=== PATIENT | male | born 1960 | race Two or more races ===

== ENCOUNTER 2024-08-05 07:56 | Day surgery (SDC) | payer BC, MEDICARE ==
[2024-07-30 09:33] LABS: Urine Bacteria None Seen /hpf (None Seen)
[2024-07-30 10:03] LABS: Alkaline Phosphatase 91 U/L (46-116); Anion Gap 6 (5-15); Blood Urea Nitrogen 20 mg/dL (9-23); Calcium 10.3 mg/dL (8.7-10.4); Carbon Dioxide 30 mmol/L (20-31); Chloride 105 mmol/L (98-107); Glucose 101 mg/dL (74-106); Potassium 4.7 mmol/L (3.5-5.1); Sodium 141 mmol/L (136-145)
[2024-07-30 10:04] LABS: Albumin 4.5 g/dL (3.2-4.8); Aspartate Aminotransferase 21 U/L (13-40); Bilirubin, Total 0.8 mg/dL (0.2-1.0)
[2024-07-30 10:11] LABS: Alanine Aminotransferase 43 U/L (7-40)
[2024-07-30 10:19] LABS: Urine Blood Negative /uL (Negative); Urine Clarity Clear (Clear); Urine Color Yellow (Yellow); Urine Mucus FEW (None Seen); Urine Protein, UAD Negative (Negative); Urine Specific Gravity 1.027 (1.001-1.035); Urine Squamous Epithelial Cell None Seen /hpf (<5); Urine Urobilinogen Normal (Negative); Urine WBC 1 /HPF (0-3); Urine pH 6.5 (5.0-9.0)
[2024-07-30 10:24] LABS: Basophils # (auto) 0 10 ^3/uL (0-0.2); Basophils % (auto) 0.7 % (0.0-2.0); Eosinophils # (auto) 0.2 10 ^3/uL (0-0.8); Eosinophils % (auto) 2.8 % (0.0-7.0); Hematocrit 51.4 % (41.0-53.0); Hemoglobin 17.4 g/dL (13.5-17.5); Lymphocytes # (auto) 1.5 10 ^3/uL (0.4-5.4); Lymphocytes % (auto) 21.7 % (10.0-50.0); Mean Corpuscular Hemoglobin 30.6 pg (28.0-32.0); Mean Corpuscular Hgb Conc. 33.9 g/dL (32.0-36.0); Mean Corpuscular Volume 90.3 fL (80.0-100.0); Monocytes # (auto) 0.5 10 ^3/uL (0-1.3); Monocytes % (auto) 6.8 % (0.0-12.0); Neutrophils # (auto) 4.6 10 ^3/uL (1.6-8.6); Platelet Count (auto) 212 10^3/uL (140-450); Red Blood Cells 5.68 10^6/uL (4.5-5.90); Red Cell Distribution Width 13.6 % (11.8-14.3); White Blood Cell 6.7 10^3/uL (4.4-10.8)
[2024-07-30 10:28] LABS: INR 0.99 (0.9-1.15); Partial Thromboplastin Time 28.2 SEC (24.5-34.5); Prothrombin Time 10.5 sec (9.3-11.8)
[~2024-08-05] VITALS: Ht 182.9 cm; Wt 84.8 kg
[~2024-08-05 07:56] MED LIST: CETI-176 PO; CREAPOW7 XX; CYAN-17 PO; MULT1TAB95 PO; PYRI1TAB3 PO; TRAZ1TAB12 PO
[2024-08-05] MEDS ORDERED: fentaNYL CITRATE 100 MCG/2 ML VL ONE (09:36)
[2024-08-05] MEDS ORDERED: MIDAZOLAM HCL 2MG/2ML 2ml VIAL (1mg/ml) ONE (09:36)
[2024-08-05] MEDS ORDERED: DexAMETHasone SOD PHOS 10MG/1ML VIAL INJ ONE (09:38)
[2024-08-05] MEDS: ceFAZolin 2 GM/D5W50ml 50 ML IV ONE (09:55)
[2024-08-05] MEDS ORDERED: HYDROmorphone HCL 2 MG/ML VL/or syr IV PRN (10:15)
[2024-08-05] MEDS ORDERED: MIDAZOLAM HCL 2MG/2ML 2ml VIAL (1mg/ml) IV PRN (10:15)
[2024-08-05] MEDS ORDERED: hydrALAZINE HCL 20 MG/ML VL IV PRN (10:15)
[2024-08-05] MEDS ORDERED: MORPHINE SULFATE 4 MG/ML SYR/VIAL IV PRN (10:15)
[2024-08-05] MEDS ORDERED: ONDANSETRON HCL 4 MG/2 ML VIAL IV ONE (10:15)
[2024-08-05] MEDS ORDERED: ePHEDrine SULFATE 50 MG/ML AMP IV PRN (10:15)
[2024-08-05] MEDS ORDERED: PROPOFOL 10 MG/ML 20 ML IV ONE (10:20)
[2024-08-05] MEDS: LIDOCAINE 1% HCL (LOCAL ANESTH.) INJ 20ML MDV ONE (10:25)
[2024-08-05] MEDS: BUPIVACAINE HCL 0.25% P/F 10 ML VIAL ONE (10:25)
[2024-08-05] MEDS ORDERED: POVIDONE IODINE 10 % TOPICAL OINT 30GM TOP ONE (10:30)
[2024-08-05 11:05] VITALS: BP 128/72; PULSE 75; RESP 13; O2SAT 95
--- NOTE | 2024-08-05 14:41 | DVHOP ---
DATE OF SURGERY: 08/05/2024 PREOPERATIVE DIAGNOSIS: Melanoma, back. POSTOPERATIVE DIAGNOSIS: Melanoma, back. SURGEON: Eric Aldana MD ANESTHESIA: General by Dr. Birch. PROCEDURE: Excision of superficial spreading melanoma with an invasive component at its deep margin. DESCRIPTION OF PROCEDURE: The patient's lesion was marked with an indelible ink pen. The patient was placed in lateral decubitus position and sedation was utilized by the anesthesiologist. A wide margin around the known biopsy-proven melanoma was accomplished with electrocautery. Subsequently, the wound was irrigated and the specimen was marked with a long suture at 6 o'clock and a short suture at 9 o'clock positions. The lesion was submitted for histopathologic examination. The wound was irrigated. Hemostasis accomplished and closure accomplished with interrupted 2-0 mattress sutures of Prolene. The wound was covered with Betadine and a sterile dressing. The patient remained stable throughout the procedure, left the operating room following an accurate needle and sponge count. Eric Aldana MD PF/KERRY TID: [id number] RECEIPT: [id number]
== END 2024-08-05 11:10 | disposition home or self-care (01) ==
LOC: SUR 07:56
PROVIDERS: ATTEND Surgery
DX: C43.59 Malignant melanoma of other part of trunk (principal); R22.2 Localized swelling, mass and lump, trunk; Z79.899 Other long term (current) drug therapy; Z98.890 Other specified postprocedural states; Z88.8 Allergy status to other drugs, medicaments and biological substances
CPT/HCPCS: 11403; 36415; 80053; 81001; 85025; 85610; 85730; 88305; 88342; J0690; J1100; J2003; J2250; J2704; J3010; J3490